=== PATIENT | male | born 2000 | race Caucasian/White ===

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

== ENCOUNTER 2025-04-13 09:10 | Emergency (ER) | payer SELFPAY ==
[~2025-04-13] VITALS: Ht 170.1 cm; Wt 117.9 kg
[~2025-04-13 09:10] MED LIST changes: +AMOXICILLIN500 M2 PO
[2025-04-13] MEDS ORDERED: PREDNISONE20 M1 PO (09:35)
[2025-04-13] MEDS ORDERED: KENALOG 0.1% LO60 ML T (09:35)
== END 2025-04-13 11:48 | disposition home or self-care (01) ==
LOC: ED 09:10
DX: L25.9 Unspecified contact dermatitis, unspecified cause (principal); Z88.8 Allergy status to other drugs, medicaments and biological substances; Z88.1 Allergy status to other antibiotic agents; Z79.899 Other long term (current) drug therapy; Z98.890 Other specified postprocedural states